=== PATIENT | female | born 1995 | race Caucasian/White ===

== ENCOUNTER 2022-02-18 20:08 | Observation (INO) ==
[2022-02-18] MEDS ORDERED: IOPAMIDOL 100 ML BOTTLE IV ONE (20:09)
[2022-02-18] MEDS ORDERED: 0.9 % SODIUM CHLORIDE 1,000 ML IV ONE (20:17)
[2022-02-18] MEDS ORDERED: cefTRIAXone 1 GM VIAL IV ONE (20:49)
--- NOTE | 2022-02-18 20:51 | Emergency Department Note ---
HPI General Chief complaint: Abdominal Pain Stated complaint: abd pain Time Seen by Provider: 02/18/22 20:16 Mode of arrival: ambulatory Limitations: no limitations History of Present Illness HPI Narrative: Narrative: Patient is a 26-year-old female who presents to the emergency department due to concern for worsening UTI. Patient states that 2 weeks ago she had burning pain with urination and increased frequency of urination, and at that time thought she had a UTI. She states that she started using cranberry juice, and felt like she had improvement in her symptoms. She states that approximately a week ago she started to have worsening burning pain with urination. She states that she spoke to her mom, and a day and a half ago began using Bactrim. She states that it is Bactrim that is used for horses. She did not see a physician or have a UTI officially diagnosed. She states that she started to have worsening abdominal pain today. This pain is in the right and left lower quadrants, as well as the left upper quadrant. She denies further radiation of the pain. She denies palliative or provocative factors. She states that she has had a subjective fever and chills. She has been taking Tylenol for this reason as we ll as for pain relief. She states that she has been taking 2 of the 500 mg tablets every 4-5 hours, but has only been that 3 times today. She endorses nausea, but has not vomited. She does state that she has had vaginal discharge that she thought was a yeast infection that she was treating, but does not have the symptoms anymore at this time. She denies any other concerns currently. Related Data Allergies Allergy/AdvReac Type Severity Reaction Status Date / Time No Known Drug Allergies Allergy Verified 02/18/22 20:13 Review of Systems ROS ROS Narrative: Narrative: Constitutional: Reports fever; Denies weakness Eyes: Denies eye pain or vision change ENT ED: Denies throat pain or rhinorrhea Cardiovascular: Denies chest pain or edema Respiratory: Denies shortness of breath or cough Gastrointestinal: Reports abdominal pain, nausea and vomiting; Denies diarrhea, constipation, hematochezia or melena Genitourinary: Reports dysuria and frequency; Denies hematuria Musculoskeletal: Denies back pain or myalgia Integumentary: Denies rash or lesions Neurological: Denies headache, weakness, numbness, confusion, abnormal gait or dizziness Endocrine: Denies fatigue or polyuria [facility] Narrative Patient History Narrative: Narrative: Medical/Surgical/Family History All Active Problems (Updated 02/19/22 @ 01:40 by Gene Hardin MD) Sepsis due to urinary tract infection (Acute) Ankle pain, right (Acute) Medical History (Updated 02/19/22 @ 01:40 by Gene Hadrin MD) Ankle pain, right Social History Alcohol Intake Frequency: does not drink Substance Use: does not use Exam Narrative Narrative: Narrative: General Limitations: no limitations General appearance: Present alert and in no apparent distress; Absent anxious or appears intoxicated Head Head: Present atraumatic and normocephalic Eye Eye: Present PERRL and EOMI; Absent scleral icterus or nystagmus ENT ENT: Present mucous membranes moist; Absent nasal congestion Neck Neck: Present full ROM; Absent tenderness Chest Chest: Present normal inspection and symmetric chest wall rise Respiratory Respiratory: Present normal lung sounds bilaterally; Absent respiratory distress or accessory muscle use Cardiovascular Cardiovascular: Present regular rate, normal rhythm and normal heart sounds Adbominal Abdominal: Present soft, tenderness (Right lower quadrant, left lower quadrant, left upper quadrant) and normal bowel sounds; Absent distention, guarding, rebound, rigidity, Jacobs's sign or Rovsing's sign Extremities Extremities: Present normal inspection and full ROM; Absent tenderness Back Back: Present normal inspection, full ROM and CVA tenderness (L) (Mild); Absent tenderness or CVA tenderness (R) Neurological Neurological: Present alert and oriented X3 Psychiatric Psychiatric: Present normal affect and normal mood Skin Skin: Present warm (WNL), dry and normal color Course Vital Signs Vital signs: Vital Signs Temperature 98.1 F 02/18/22 20:09 Pulse Rate 118 H 02/18/22 20:09 Respiratory Rate 24 H 02/18/22 20:09 Blood Pressure 129/72 02/18/22 20:09 Pulse Oximetry (%) 96 02/18/22 20:09 Oxygen Delivery Method 02/18/22 20:09 Temperature 100.2 F H 02/18/22 20:46 Pulse Rate 71 02/19/22 01:31 Respiratory Rate 12 02/19/22 01:31 Blood Pressure 108/64 02/19/22 01:31 Pulse Oximetry (%) 99 02/19/22 01:31 Oxygen Delivery Method 02/18/22 20:09 MDM MDM Narrative Medical decision making narrative: Narrative: Patient is a 26-year-old female who presents to the emergency department due to abdominal pain. It is possible the patient's symptoms are due to UTI given her burning pain with urination and frequency. Differential also includes gastroenteritis, colitis, pancreatitis, and pelvic inflammatory disease. I spoke to patient about possibility of pelvic infection, and initially patient stated that she did not want a pelvic exam. We spoke further about reasoning for a pelvic exam, and she stated that she wanted to talk about it. I spoke to patient again, and told her that we could wait for results of the CT scan prior to making a decision about the pelvic exam. Patient's labs are si gnificant for a white blood cell count elevation of 18.7. Her urine does show white blood cells, but does not show leukocyte esterase or nitrite, and also does not show bacteria. It is possible that this is because of the Bactrim the patient has been taking. CT scan demonstrates multiple hypodensities within the left kidney and striated pattern with associated perinephric inflammatory changes, as well as mild hyperemia along the left ureter. I spoke to the patient about these findings. With these findings and other symptoms consistent with a UTI I am concerned about urosepsis. I have spoken to Dr. Parry about these findings. He has agreed to accept patient for admission. Lab Data Result diagrams: 02/18/22 20:55 Labs: Lab Results 02/18/22 02/18/22 02/18/22 Range/Units 20:55 20:55 20:55 WBC 18.7 H (4.5-11.0) K/mcL RBC 4.58 (3.59-5.38) M/mcL Hgb 13.6 (11.2-15.7) g/dL Hct 39.9 (34.1-44.9) % POC Hct (36-48) MCV 87.1 (80.0-100.0) fL MCH 29.7 (26.0-34.0) pg MCHC 34.1 (31.0-36.0) g/dL RDW 12.0 (11.5-14.5) % Plt Count 196 (140-440) K/mcL MPV 11.6 H (7.4-10.4) fL Immature Gran % (Auto) 0.5 (0.0-0.5) % Neut % (Auto) 84.2 H (38.0-78.0) % Lymph % (Auto) 7.3 L (15.5-49.0) % [place] % (Auto) 7.8 (1.0-12.0) % Eos % (Auto) 0 (0.0-7.0) % Baso % (Auto) 0.2 (0.0-2.0) % Lymph # (Auto) 1.36 L (1.50-4.80) K/mcL [place] # (Auto) 1.47 H (0.10-0.90) K/mcL Eos # (Auto) 0 (0.00-0.70) K/mcL Baso # (Auto) 0.04 (0.00-0.30) K/mcL Immature Gran # 0.09 H (0.00-0.05) K/mcl Absolute Neutrophils 15.77 H (1.80-8.00) K/mcL VBG Lactic Acid (0.5-2.0) mmol/L POC Sodium (133-145) POC Potassium (3.3-5.1) POC Chloride (96-108) POC Total CO2 (22-30) POC BUN (6-20) POC Creatinine (0.6-1.2) POC Glucose (70-105) POC WB Ioniz Calcium (1.16-1.32) Total Bilirubin (0.1-1.0) mg/dL Direct Bilirubin (0-0.3) mg/dL AST (<32) U/L ALT (<40) U/L Alkaline Phosphatase (39-117) U/L Total Protein (5.9-8.4) gm/dL Albumin (3.2-5.2) gm/dL Globulin (2.2-3.7) gm/dL Lipase (7-60) U/L Procalcitonin 0.19 H (<0.10) ng/mL HCG Beta Subunit mIU/mL Urine Color Yellow Urine Appearance Clear (Clear) Urine pH 6.0 (5.0-9.0) Ur Specific [place] 1.025 (1.000-1.035) Urine Protein Trace A (Negative) mg/dL Urine Glucose (UA) Negative (Negative) mg/dL Urine Ketones 40 mg/dl A (Negative) mg/dL Urine Occult Blood Small A (Negative) tahir/mcL Urine Nitrate Negative (Negative) Urine Bilirubin Negative (Negative) mg/dL Urine Urobilinogen Normal mg/dL Ur Leukocyte Esterase Negative (Negative) /uL Urine RBC 7 H (0-3) /hpf Urine WBC 18 H (0-4) /hpf Ur Squamous Epith Cells 1 (0-4) /hpf Urine Bacteria None (0) /hpf Urine Mucus Mod A (None) /hpf Ur Culture Indicated? yes Acetaminophen ug/mL 02/18/22 02/18/22 02/18/22 Range/Units 20:55 20:55 20:59 WBC (4.5-11.0) K/mcL RBC (3.59-5.38) M/mcL Hgb (11.2-15.7) g/dL Hct (34.1-44.9) % POC Hct 42.0 (36-48) MCV (80.0-100.0) fL MCH (26.0-34.0) pg MCHC (31.0-36.0) g/dL RDW (11.5-14.5) % Plt Count (140-440) K/mcL MPV (7.4-10.4) fL Immature Gran % (Auto) (0.0-0.5) % Neut % (Auto) (38.0-78.0) % Lymph % (Auto) (15.5-49.0) % [place] % (Auto) (1.0-12.0) % Eos % (Auto) (0.0-7.0) % Baso % (Auto) (0.0-2.0) % Lymph # (Auto) (1.50-4.80) K/mcL [place] # (Auto) (0.10-0.90) K/mcL Eos # (Auto) (0.00-0.70) K/mcL Baso # (Auto) (0.00-0.30) K/mcL Immature Gran # (0.00-0.05) K/mcl Absolute Neutrophils (1.80-8.00) K/mcL VBG Lactic Acid (0.5-2.0) mmol/L POC Sodium 136 (133-145) POC Potassium 3.6 (3.3-5.1) POC Chloride 102 (96-108) POC Total CO2 23.0 (22-30) POC BUN 5 L (6-20) POC Creatinine 0.6 (0.6-1.2) POC Glucose 105 (70-105) POC WB Ioniz Calcium 1.12 L (1.16-1.32) Total Bilirubin 0.8 (0.1-1.0) mg/dL Direct Bilirubin < 0.2 (0-0.3) mg/dL AST 20 (<32) U/L ALT 13 (<40) U/L Alkaline Phosphatase 61 (39-117) U/L Total Protein 7.3 (5.9-8.4) gm/dL Albumin 4.0 (3.2-5.2) gm/dL Globulin 3.3 (2.2-3.7) gm/dL Lipase (7-60) U/L Procalcitonin (<0.10) ng/mL HCG Beta Subunit mIU/mL Urine Color Urine Appearance (Clear) Urine pH (5.0-9.0) Ur Specific [place] (1.000-1.035) Urine Protein (Negative) mg/dL Urine Glucose (UA) (Negative) mg/dL Urine Ketones (Negative) mg/dL Urine Occult Blood (Negative) tahir/mcL Urine Nitrate (Negative) Urine Bilirubin (Negative) mg/dL Urine Urobilinogen mg/dL Ur Leukocyte Esterase (Negative) /uL Urine RBC (0-3) /hpf Urine WBC (0-4) /hpf Ur Squamous Epith Cells (0-4) /hpf Urine Bacteria (0) /hpf Urine Mucus (None) /hpf Ur Culture Indicated? Acetaminophen 16.3 ug/mL 02/18/22 02/19/22 Range/Units 21:06 20:55 WBC (4.5-11.0) K/mcL RBC (3.59-5.38) M/mcL Hgb (11.2-15.7) g/dL Hct (34.1-44.9) % POC Hct (36-48) MCV (80.0-100.0) fL MCH (26.0-34.0) pg MCHC (31.0-36.0) g/dL RDW (11.5-14.5) % Plt Count (140-440) K/mcL MPV (7.4-10.4) fL Immature Gran % (Auto) (0.0-0.5) % Neut % (Auto) (38.0-78.0) % Lymph % (Auto) (15.5-49.0) % [place] % (Auto) (1.0-12.0) % Eos % (Auto) (0.0-7.0) % Baso % (Auto) (0.0-2.0) % Lymph # (Auto) (1.50-4.80) K/mcL [place] # (Auto) (0.10-0.90) K/mcL Eos # (Auto) (0.00-0.70) K/mcL Baso # (Auto) (0.00-0.30) K/mcL Immature Gran # (0.00-0.05) K/mcl Absolute Neutrophils (1.80-8.00) K/mcL VBG Lactic Acid 0.9 (0.5-2.0) mmol/L POC Sodium (133-145) POC Potassium (3.3-5.1) POC Chloride (96-108) POC Total CO2 (22-30) POC BUN (6-20) POC Creatinine (0.6-1.2) POC Glucose (70-105) POC WB Ioniz Calcium (1.16-1.32) Total Bilirubin (0.1-1.0) mg/dL Direct Bilirubin (0-0.3) mg/dL AST (<32) U/L ALT (<40) U/L Alkaline Phosphatase (39-117) U/L Total Protein (5.9-8.4) gm/dL Albumin (3.2-5.2) gm/dL Globulin (2.2-3.7) gm/dL Lipase 13 (7-60) U/L Procalcitonin (<0.10) ng/mL HCG Beta Subunit < 0.1 mIU/mL Urine Color Urine Appearance (Clear) Urine pH (5.0-9.0) Ur Specific [place] (1.000-1.035) Urine Protein (Negative) mg/dL Urine Glucose (UA) (Negative) mg/dL Urine Ketones (Negative) mg/dL Urine Occult Blood (Negative) tahir/mcL Urine Nitrate (Negative) Urine Bilirubin (Negative) mg/dL Urine Urobilinogen mg/dL Ur Leukocyte Esterase (Negative) /uL Urine RBC (0-3) /hpf Urine WBC (0-4) /hpf Ur Squamous Epith Cells (0-4) /hpf Urine Bacteria (0) /hpf Urine Mucus (None) /hpf Ur Culture Indicated? Acetaminophen ug/mL ED POC Tests ED POC Tests: RUPALI - Influenza A Negative RUPALI - Influenza B Negative RUPALI - SARS Antigen Negative HCG POC Results Negative Discharge Plan Patient/Caregiver Discharge Instructions Pt seen by [employer]PL[employer]ISHER/PA only: No Clinical Impression: Sepsis due to urinary tract infection Patient Disposition: Xfer As Inpt ([facility]) Follow up with: Francia Whitlock ARNP [Primary Care Provider] -
[2022-02-18] MEDS ORDERED: ONDANSETRON 4 MG/2 ML VIAL IV ONE (21:08)
[2022-02-18 21:11] LABS: POC Calcium, Ionized 1.12 (1.16-1.32); POC Creatinine 0.6 (0.6-1.2); POC Potassium 3.6 (3.3-5.1)
[2022-02-18] MEDS ORDERED: IBUPROFEN 600 MG TABLET PO ONE (21:40)
[2022-02-18 22:27] LABS: Basophils # (Auto) 0.04 K/mcL (0.00-0.30); Basophils % (Auto) 0.2 % (0.0-2.0); Eosinophils # (Auto) 0 K/mcL (0.00-0.70); Eosinophils % (Auto) 0 % (0.0-7.0); Hematocrit 39.9 % (34.1-44.9); Hemoglobin 13.6 g/dL (11.2-15.7); Lymphocytes # (Auto) 1.36 K/mcL (1.50-4.80); Lymphocytes % (Auto) 7.3 % (15.5-49.0); Mean Cell Volume 87.1 fL (80.0-100.0); Mean Corpuscular HGB Conc 34.1 g/dL (31.0-36.0); Mean Platelet Volume 11.6 fL (7.4-10.4); Monocytes # (Auto) 1.47 K/mcL (0.10-0.90); Monocytes % (Auto) 7.8 % (1.0-12.0); Neutrophils % (Auto) 84.2 % (38.0-78.0); Platelet Count 196 K/mcL (140-440); RBC 4.58 M/mcL (3.59-5.38); WBC 18.7 K/mcL (4.5-11.0)
[2022-02-18 22:30] LABS: ALT/SGPT 13 U/L (<40); AST/SGOT 20 U/L (<32); Alkaline Phosphatase 61 U/L (39-117); Bilirubin,Direct < 0.2 mg/dL (0-0.3); Bilirubin,Total 0.8 mg/dL (0.1-1.0); Globulin 3.3 gm/dL (2.2-3.7)
[2022-02-18 22:36] LABS: Appearance,Urine Clear (Clear); Bilirubin,Urine Negative (Negative); Color,Urine Yellow; Culture Indicated,Urine yes; Glucose,Urine (UA) Negative (Negative); Ketones,Urine 40 mg/dL mg/dL (Negative); Leukocyte Esterase,Urine Negative /uL (Negative); Mucus,Urine MOD /hpf; Nitrate,Urine Negative (Negative); Protein,Urine Trace mg/dL (Negative); Specific Gravity,Urine 1.025 (1.000-1.035); Urine Blood Small ery/mcL (Negative); Urine RBC 7 /hpf (0-3); Urine Squamous Epithelial Cell 1 /hpf (0-4); Urine WBC 18 /hpf (0-4); Urobilinogen,Urine Normal
[2022-02-19 01:17] LABS: HCG Titer, Quantitative < 0.1 mIU/mL
[2022-02-19] MEDS ORDERED: LACTATED RINGERS 1,000 ML IV SCH ×2 (01:45→09:51)
[2022-02-19] MEDS ORDERED: ACETAMINOPHEN 325 MG TABLET PO ONE (02:47)
[2022-02-19] MEDS: ACETAMINOPHEN 325 MG TABLET PO PRN ×3 (02:52→20:19)
--- NOTE | 2022-02-19 05:34 | Cat Scan Report ---
CLINICAL INFORMATION: Abdominal pain COMPARISON: None. TECHNIQUE: Following enteric contrast, 80 cc of Isovue-370 were injected intravenously, and 60 seconds later, 0.625 mm helical slices were obtained from the mid heart through the subtrochanteric regions. Following reconstruction, 2.5 mm sagittal, coronal and axial reformatted images were processed and reviewed at bone, lung and soft tissue windows. Five minutes later, 0.625 mm helical slices were obtained from the mid heart through the kidneys and viewed at soft tissue windows.The exam was performed using radiation dose optimization techniques including, but not limited to, automated exposure control, adjustment of the mA and/or kV according to patient size and use of iterative reconstruction technique. FINDINGS: The lung bases are clear. No effusions. The visualized heart is grossly normal. Abdominal images show the gallbladder and bile ducts, liver, adrenal glands, spleen, pancreas and aorta, including aortic branches, are normal in size, configuration and attenuation without focal lesion. There is no free air or adenopathy. Small amount of free fluid in the deep true pelvis is likely physiologic. Left kidney is slightly enlarged measuring 12 cm in length. There is moderate patchy inhomogeneous low attenuation within the renal parenchyma and mild thickening of the transitional epithelium in the upper collecting system with perinephric fluid all compatible with pyelonephritis. No pippa abscess. Right kidney is normal in size and configuration (10.6 cm in length). Pelvic images show normal urinary bladder. Uterus and both ovaries are normal in size, configuration and attenuation. IUD is properly positioned within the endometrial cavity. The stomach, small bowel, appendix region and large bowel are grossly normal. Bone windows show no osseous abnormality IMPRESSION: Simple pyelonephritis-left kidney Interpreted and Authenticated by: Jovanni Hart 02/19/22
[2022-02-19 06:36] LABS: Basophils # (Auto) 0.04 K/mcL (0.00-0.30); Basophils % (Auto) 0.3 % (0.0-2.0); Eosinophils # (Auto) 0.06 K/mcL (0.00-0.70); Eosinophils % (Auto) 0.5 % (0.0-7.0); Hematocrit 35.5 % (34.1-44.9); Hemoglobin 12.2 g/dL (11.2-15.7); Lymphocytes # (Auto) 2.22 K/mcL (1.50-4.80); Lymphocytes % (Auto) 17.1 % (15.5-49.0); Mean Cell Volume 88.5 fL (80.0-100.0); Mean Corpuscular HGB Conc 34.4 g/dL (31.0-36.0); Mean Platelet Volume 11.1 fL (7.4-10.4); Monocytes # (Auto) 1.31 K/mcL (0.10-0.90); Monocytes % (Auto) 10.1 % (1.0-12.0); Neutrophils % (Auto) 71.5 % (38.0-78.0); Platelet Count 172 K/mcL (140-440); RBC 4.01 M/mcL (3.59-5.38)
[2022-02-19 06:55] LABS: ALT/SGPT 9 U/L (<40); AST/SGOT 11 U/L (<32); Albumin 3.3 gm/dL (3.2-5.2); Albumin/Globulin Ratio 1.2 (1.0-2.3); Alkaline Phosphatase 49 U/L (39-117); Bilirubin,Direct < 0.2 mg/dL (0-0.3); Bilirubin,Total 0.5 mg/dL (0.1-1.0); Blood Urea Nitrogen 6 mg/dL (6-20); Calcium 8.4 mg/dL (8.6-10.4); Carbon Dioxide 23 mmol/L (22-30); Chloride 104 mmol/L (96-108); Globulin 2.7 gm/dL (2.2-3.7); Glomerular Filtration Rate 135; Glucose 102 mg/dL (70-105); Lactate Dehydrogenase 124 U/L (135-225); Triglycerides 83 mg/dL (<150); Uric Acid 2.6 mg/dL (2.5-8.0)
--- NOTE | 2022-02-19 07:52 | Internal Med History&Physical ---
HPI History of Present Illness Patient information: Note initiated : 02/19/22 at 7:47 am Service Date, if different from initiated Date: [] Patient: Felicia Dwyer 26 y/o F admitted on 02/19/22 for abd pain. Chief Complaint: [] History of present illness: Ms. Dwyer is a 26 year old F Who thought she had UTI symptoms several weeks ago described as burning and frequency and initially tried cranberry juice and then tried some home antibiotics that they had further horses which monitor status basically Bactrim. She said the symptoms mostly improved but now patient presented to ED with bilateral abdominal pain lower quadrant. Pain was severe at times mostly dull ache but sometimes crampy and sharp. She had nausea vomiting for 24 hours could not keep any pain medications down. Tina feverish and chilled and had a headache as well. Her temperature in the ER was 100.2. Blood pressure stable. She was tachycardic up to 118 when she first arrived. She had a leukocytosis of almost 19,000 when she arrived. Lactic acid within normal limits. Beta-hCG negative. CT ab pelvis showed pyelonephritis left kidney. Review of Systems: Positives as above. Denies headache/fever/chills/nausea/vomiting/chest pain/cough/dyspnea/diarrhea. Remaining 10 point review of system reviewed negative PFSH PFSH All Active Problems (Updated 02/19/22 @ 01:40 by Gene Hardin MD) Sepsis due to urinary tract infection (Acute) Ankle pain, right (Acute) Medical History (Updated 02/19/22 @ 01:40 by Gene Hardin MD) Ankle pain, right Social History (Updated 12/06/16 @ 14:49 by Judith Urias RN) smoking status: Never smoker alcohol intake frequency: does not drink substance use type: does not use MEDS/ALLERGIES Home Medications and Allergies Home Medications Medication Instructions Recorded Confirmed Type buspirone 15 mg tablet 1 tab PO BID 02/19/22 02/19/22 History duloxetine 20 mg capsule,delayed 1 cap PO DAILY 02/19/22 02/19/22 History release levofloxacin 750 mg tablet 750 mg PO Q24H #5 tabs 02/19/22 Rx Allergies Allergy/AdvReac Type Severity Reaction Status Date / Time No Known Drug Allergies Allergy Verified 02/18/22 20:13 EXAM Constitutional Vitals: Temp Pulse Resp BP Pulse Ox O2 Del Method 97.4 F 69 20 110/77 100 02/19/22 04:00 02/19/22 04:00 02/19/22 04:00 02/19/22 04:00 02/19/22 04:00 02/19/22 04:00 Exam: General: Alert, Awake, No acute Distress Eyes/N/T: EOMI, PERRL, Head/Neck: neck supple, normocephalic atraumatic CV: RRR, No murmurs, normal s1/s2 Pulm: Clear b/l, no wheezing/rhonchi/rales Abd: soft, nontender, +BS x4, CVA tenderness on Left Ext: no clubbing/cyanosis/edema Neuro: Alert, no focal deficits, moves all extremities, CN 2-12 grossly intact, symmetrical strength b/l upper/lower, sensations intact b/l upper/lower Skin: warm/dry DATA Data Completed and Pending Labs: Labs from last 24 hours 02/19/22 02/19/22 02/19/22 20:55 05:23 05:23 WBC 13.0 H RBC 4.01 Hgb 12.2 Hct 35.5 POC Hct MCV 88.5 MCH 30.4 MCHC 34.4 RDW 12.0 Plt Count 172 MPV 11.1 H Immature Gran % (Auto) 0.5 Neut % (Auto) 71.5 Lymph % (Auto) 17.1 [place] % (Auto) 10.1 Eos % (Auto) 0.5 Baso % (Auto) 0.3 Lymph # (Auto) 2.22 [place] # (Auto) 1.31 H Eos # (Auto) 0.06 Baso # (Auto) 0.04 Immature Gran # 0.06 H Absolute Neutrophils 9.31 H VBG Lactic Acid POC Sodium Sodium 135 POC Potassium Potassium 3.6 POC Chloride Chloride 104 Carbon Dioxide 23 POC Total CO2 Anion Gap 8.0 POC BUN BUN 6 Creatinine 0.5 L POC Creatinine GFR Calculation 135 Glucose 102 POC Glucose Uric Acid 2.6 Calcium 8.4 L POC WB Ioniz Calcium Phosphorus 3.0 Magnesium 2.1 Total Bilirubin 0.5 Direct Bilirubin < 0.2 GGT 11 AST 11 ALT 9 Alkaline Phosphatase 49 Lactate Dehydrogenase 124 L Total Protein 6.0 Albumin 3.3 Globulin 2.7 Albumin/Globulin Ratio 1.2 Triglycerides 83 Lipase 13 Procalcitonin HCG Beta Subunit < 0.1 Urine Color Urine Appearance Urine pH Ur Specific [place] Urine Protein Urine Glucose (UA) Urine Ketones Urine Occult Blood Urine Nitrate Urine Bilirubin Urine Urobilinogen Ur Leukocyte Esterase Urine RBC Urine WBC Ur Squamous Epith Cells Urine Bacteria Urine Mucus Ur Culture Indicated? Acetaminophen 02/18/22 02/18/22 02/18/22 21:06 20:59 20:55 WBC RBC Hgb Hct POC Hct 42.0 MCV MCH MCHC RDW Plt Count MPV Immature Gran % (Auto) Neut % (Auto) Lymph % (Auto) [place] % (Auto) Eos % (Auto) Baso % (Auto) Lymph # (Auto) [place] # (Auto) Eos # (Auto) Baso # (Auto) Immature Gran # Absolute Neutrophils VBG Lactic Acid 0.9 POC Sodium 136 Sodium POC Potassium 3.6 Potassium POC Chloride 102 Chloride Carbon Dioxide POC Total CO2 23.0 Anion Gap POC BUN 5 L BUN Creatinine POC Creatinine 0.6 GFR Calculation Glucose POC Glucose 105 Uric Acid Calcium POC WB Ioniz Calcium 1.12 L Phosphorus Magnesium Total Bilirubin Direct Bilirubin GGT AST ALT Alkaline Phosphatase Lactate Dehydrogenase Total Protein Albumin Globulin Albumin/Globulin Ratio Triglycerides Lipase Procalcitonin HCG Beta Subunit Urine Color Urine Appearance Urine pH Ur Specific [place] Urine Protein Urine Glucose (UA) Urine Ketones Urine Occult Blood Urine Nitrate Urine Bilirubin Urine Urobilinogen Ur Leukocyte Esterase Urine RBC Urine WBC Ur Squamous Epith Cells Urine Bacteria Urine Mucus Ur Culture Indicated? Acetaminophen 16.3 02/18/22 02/18/22 02/18/22 20:55 20:55 20:55 WBC RBC Hgb Hct POC Hct MCV MCH MCHC RDW Plt Count MPV Immature Gran % (Auto) Neut % (Auto) Lymph % (Auto) [place] % (Auto) Eos % (Auto) Baso % (Auto) Lymph # (Auto) [place] # (Auto) Eos # (Auto) Baso # (Auto) Immature Gran # Absolute Neutrophils VBG Lactic Acid POC Sodium Sodium POC Potassium Potassium POC Chloride Chloride Carbon Dioxide POC Total CO2 Anion Gap POC BUN BUN Creatinine POC Creatinine GFR Calculation Glucose POC Glucose Uric Acid Calcium POC WB Ioniz Calcium Phosphorus Magnesium Total Bilirubin 0.8 Direct Bilirubin < 0.2 GGT AST 20 ALT 13 Alkaline Phosphatase 61 Lactate Dehydrogenase Total Protein 7.3 Albumin 4.0 Globulin 3.3 Albumin/Globulin Ratio Triglycerides Lipase Procalcitonin 0.19 H HCG Beta Subunit Urine Color Yellow Urine Appearance Clear Urine pH 6.0 Ur Specific [place] 1.025 Urine Protein Trace A Urine Glucose (UA) Negative Urine Ketones 40 mg/dl A Urine Occult Blood Small A Urine Nitrate Negative Urine Bilirubin Negative Urine Urobilinogen Normal Ur Leukocyte Esterase Negative Urine RBC 7 H Urine WBC 18 H Ur Squamous Epith Cells 1 Urine Bacteria None Urine Mucus Mod A Ur Culture Indicated? yes Acetaminophen 02/18/22 20:55 WBC 18.7 H RBC 4.58 Hgb 13.6 Hct 39.9 POC Hct MCV 87.1 MCH 29.7 MCHC 34.1 RDW 12.0 Plt Count 196 MPV 11.6 H Immature Gran % (Auto) 0.5 Neut % (Auto) 84.2 H Lymph % (Auto) 7.3 L [place] % (Auto) 7.8 Eos % (Auto) 0 Baso % (Auto) 0.2 Lymph # (Auto) 1.36 L [place] # (Auto) 1.47 H Eos # (Auto) 0 Baso # (Auto) 0.04 Immature Gran # 0.09 H Absolute Neutrophils 15.77 H VBG Lactic Acid POC Sodium Sodium POC Potassium Potassium POC Chloride Chloride Carbon Dioxide POC Total CO2 Anion Gap POC BUN BUN Creatinine POC Creatinine GFR Calculation Glucose POC Glucose Uric Acid Calcium POC WB Ioniz Calcium Phosphorus Magnesium Total Bilirubin Direct Bilirubin GGT AST ALT Alkaline Phosphatase Lactate Dehydrogenase Total Protein Albumin Globulin Albumin/Globulin Ratio Triglycerides Lipase Procalcitonin HCG Beta Subunit Urine Color Urine Appearance Urine pH Ur Specific [place] Urine Protein Urine Glucose (UA) Urine Ketones Urine Occult Blood Urine Nitrate Urine Bilirubin Urine Urobilinogen Ur Leukocyte Esterase Urine RBC Urine WBC Ur Squamous Epith Cells Urine Bacteria Urine Mucus Ur Culture Indicated? Acetaminophen A/P Narrative A/P Narrative: A: *Left pyelonephritis: *Sepsis: 2/2 above, improving *Depression/anxiety: P: -Rocephin pending UC -IVF -pain control -ppx: SCD/Ambulation Time Spent With Patient Time: Total time spent is greater than 50% in coordination of care (as documented) at patient's floor/unit and/or counseling patient:
[2022-02-19] MEDS ORDERED: HYDROcodone/APAP 5/325MG TABLET PO PRN (08:54)
[2022-02-19] MEDS ORDERED: POTASSIUM CHLORIDE 20 MEQ TABLET PO PRN ×2 (08:54)
[2022-02-19] MEDS ORDERED: ONDANSETRON 4 MG/2 ML VIAL IV PRN (08:54)
[2022-02-19] MEDS ORDERED: POLYETHYLENE GLYCOL 3350 17 GM PACKET PO PRN (08:54)
[2022-02-19] MEDS ORDERED: POTASSIUM CHLORIDE 40 MEQ in DEXTROSE 5% IN WATER 500 ML IV PRN (08:54)
[2022-02-19] MEDS ORDERED: MAGNESIUM SULFATE 2 GM/50 ML BAG IV PRN (08:54)
--- NOTE | 2022-02-19 08:58 | Discharge Summary ---
Discharge Provider Provider IMPORTANT FOLLOW-UP INFORMATION FOR PCP: Patient information: Note initiated : 02/19/22 at 8:57 am Service Date, if different from initiated Date: [] Patient: Felicia Dwyer 26 y/o F admitted on 02/19/22 for abd pain. Chief Complaint: [] Date of admission: 02/19/22 02:26 Discharge date: 02/20/22 Primary care physician: JOHNNIE Caruso Consults: 02/18/22 Consult to Physician [CONS] Stat Comment: Consulting Provider: Sanya Parry Reason For Exam: Physician to Consult COURSE Hospital Course Hospital course: History of present illness: Ms. Dwyer is a 26 year old F Who thought she had UTI symptoms several weeks ago described as burning and frequency and initially tried cranberry juice and then tried some home antibiotics that they had further horses which monitor status basically Bactrim. She said the symptoms mostly improved but now patient presented to ED with bilateral abdominal pain lower quadrant. Pain was severe at times mostly dull ache but sometimes crampy and sharp. She had nausea vomiting for 24 hours could not keep any pain medications down. [place] feverish and chilled and had a headache as well. Her temperature in the ER was 100.2. Blood pressure stable. She was tachycardic up to 118 when she first arrived. She had a leukocytosis of almost 19,000 when she arrived. Lactic acid within normal limits. Beta-hCG negative. CT ab pelvis showed pyelonephritis left kidney. 02/20 Patient feeling better. Leukocytosis resolved. Afebrile. Stable for discharge. A: *Left pyelonephritis: *Sepsis: 2/2 above, improving *Depression/anxiety: P: -Abx Discharge diagnosis: Pyelonephritis sepsis Secondary discharge diagnosis: Depression anxiety Time Spent with Patient Time attestation: Total time spent providing and/or coordinating discharge services: Time spent: Greater than 30 minutes EXAM Constitutional Vitals: Temp Pulse Resp BP Pulse Ox O2 Del Method 98.5 F 69 16 119/71 100 02/19/22 08:00 02/19/22 04:00 02/19/22 08:00 02/19/22 08:00 02/19/22 08:00 02/19/22 04:00 Discharge Data Data Completed and Pending Labs on day of discharge: Labs from last 24 hours 02/19/22 02/19/2222 20:55 05:23 05:23 WBC 13.0 H RBC 4.01 Hgb 12.2 Hct 35.5 POC Hct MCV 88.5 MCH 30.4 MCHC 34.4 RDW 12.0 Plt Count 172 MPV 11.1 H Immature Gran % (Auto) 0.5 Neut % (Auto) 71.5 Lymph % (Auto) 17.1 [place] % (Auto) 10.1 Eos % (Auto) 0.5 Baso % (Auto) 0.3 Lymph # (Auto) 2.22 [place] # (Auto) 1.31 H Eos # (Auto) 0.06 Baso # (Auto) 0.04 Immature Gran # 0.06 H Absolute Neutrophils 9.31 H VBG Lactic Acid POC Sodium Sodium 135 POC Potassium Potassium 3.6 POC Chloride Chloride 104 Carbon Dioxide 23 POC Total CO2 Anion Gap 8.0 POC BUN BUN 6 Creatinine 0.5 L POC Creatinine GFR Calculation 135 Glucose 102 POC Glucose Uric Acid 2.6 Calcium 8.4 L POC WB Ioniz Calcium Phosphorus 3.0 Magnesium 2.1 Total Bilirubin 0.5 Direct Bilirubin < 0.2 GGT 11 AST 11 ALT 9 Alkaline Phosphatase 49 Lactate Dehydrogenase 124 L Total Protein 6.0 Albumin 3.3 Globulin 2.7 Albumin/Globulin Ratio 1.2 Triglycerides 83 Lipase 13 Procalcitonin HCG Beta Subunit < 0.1 Urine Color Urine Appearance Urine pH Ur Specific [place] Urine Protein Urine Glucose (UA) Urine Ketones Urine Occult Blood Urine Nitrate Urine Bilirubin Urine Urobilinogen Ur Leukocyte Esterase Urine RBC Urine WBC Ur Squamous Epith Cells Urine Bacteria Urine Mucus Ur Culture Indicated? Acetaminophen 02/18/22 02/18/22 02/18/22 21:06 20:59 20:55 WBC RBC Hgb Hct POC Hct 42.0 MCV MCH MCHC RDW Plt Count MPV Immature Gran % (Auto) Neut % (Auto) Lymph % (Auto) [place] % (Auto) Eos % (Auto) Baso % (Auto) Lymph # (Auto) [place] # (Auto) Eos # (Auto) Baso # (Auto) Immature Gran # Absolute Neutrophils VBG Lactic Acid 0.9 POC Sodium 136 Sodium POC Potassium 3.6 Potassium POC Chloride 102 Chloride Carbon Dioxide POC Total CO2 23.0 Anion Gap POC BUN 5 L BUN Creatinine POC Creatinine 0.6 GFR Calculation Glucose POC Glucose 105 Uric Acid Calcium POC WB Ioniz Calcium 1.12 L Phosphorus Magnesium Total Bilirubin Direct Bilirubin GGT AST ALT Alkaline Phosphatase Lactate Dehydrogenase Total Protein Albumin Globulin Albumin/Globulin Ratio Triglycerides Lipase Procalcitonin HCG Beta Subunit Urine Color Urine Appearance Urine pH Ur Specific [place] Urine Protein Urine Glucose (UA) Urine Ketones Urine Occult Blood Urine Nitrate Urine Bilirubin Urine Urobilinogen Ur Leukocyte Esterase Urine RBC Urine WBC Ur Squamous Epith Cells Urine Bacteria Urine Mucus Ur Culture Indicated? Acetaminophen 16.3 02/18/22 02/18/22 02/18/22 20:55 20:55 20:55 WBC RBC Hgb Hct POC Hct MCV MCH MCHC RDW Plt Count MPV Immature Gran % (Auto) Neut % (Auto) Lymph % (Auto) [place] % (Auto) Eos % (Auto) Baso % (Auto) Lymph # (Auto) [place] # (Auto) Eos # (Auto) Baso # (Auto) Immature Gran # Absolute Neutrophils VBG Lactic Acid POC Sodium Sodium POC Potassium Potassium POC Chloride Chloride Carbon Dioxide POC Total CO2 Anion Gap POC BUN BUN Creatinine POC Creatinine GFR Calculation Glucose POC Glucose Uric Acid Calcium POC WB Ioniz Calcium Phosphorus Magnesium Total Bilirubin 0.8 Direct Bilirubin < 0.2 GGT AST 20 ALT 13 Alkaline Phosphatase 61 Lactate Dehydrogenase Total Protein 7.3 Albumin 4.0 Globulin 3.3 Albumin/Globulin Ratio Triglycerides Lipase Procalcitonin 0.19 H HCG Beta Subunit Urine Color Yellow Urine Appearance Clear Urine pH 6.0 Ur Specific [place] 1.025 Urine Protein Trace A Urine Glucose (UA) Negative Urine Ketones 40 mg/dl A Urine Occult Blood Small A Urine Nitrate Negative Urine Bilirubin Negative Urine Urobilinogen Normal Ur Leukocyte Esterase Negative Urine RBC 7 H Urine WBC 18 H Ur Squamous Epith Cells 1 Urine Bacteria None Urine Mucus Mod A Ur Culture Indicated? yes Acetaminophen 02/18/22 20:55 WBC 18.7 H RBC 4.58 Hgb 13.6 Hct 39.9 POC Hct MCV 87.1 MCH 29.7 MCHC 34.1 RDW 12.0 Plt Count 196 MPV 11.6 H Immature Gran % (Auto) 0.5 Neut % (Auto) 84.2 H Lymph % (Auto) 7.3 L [place] % (Auto) 7.8 Eos % (Auto) 0 Baso % (Auto) 0.2 Lymph # (Auto) 1.36 L [place] # (Auto) 1.47 H Eos # (Auto) 0 Baso # (Auto) 0.04 Immature Gran # 0.09 H Absolute Neutrophils 15.77 H VBG Lactic Acid POC Sodium Sodium POC Potassium Potassium POC Chloride Chloride Carbon Dioxide POC Total CO2 Anion Gap POC BUN BUN Creatinine POC Creatinine GFR Calculation Glucose POC Glucose Uric Acid Calcium POC WB Ioniz Calcium Phosphorus Magnesium Total Bilirubin Direct Bilirubin GGT AST ALT Alkaline Phosphatase Lactate Dehydrogenase Total Protein Albumin Globulin Albumin/Globulin Ratio Triglycerides Lipase Procalcitonin HCG Beta Subunit Urine Color Urine Appearance Urine pH Ur Specific [place] Urine Protein Urine Glucose (UA) Urine Ketones Urine Occult Blood Urine Nitrate Urine Bilirubin Urine Urobilinogen Ur Leukocyte Esterase Urine RBC Urine WBC Ur Squamous Epith Cells Urine Bacteria Urine Mucus Ur Culture Indicated? Acetaminophen Discharge Plan Patient/Caregiver Discharge Instructions Activity: increase activity as tolerated Diet: Regular Diet Instructions: Urinary Tract Infection in Women (GEN), Sepsis (GEN) Activity Restrictions/Additional Instructions: Activity as tolerated, continue with a regular diet. Prescriptions: New levofloxacin 750 mg tablet 750 mg PO Q24H Qty: 5 0RF Rx Instructions: start morning of 02/21/2022. Continued buspirone 15 mg tablet 1 tab PO BID duloxetine 20 mg capsule,delayed release(DR/EC) 1 cap PO DAILY Follow Up Plan Follow up with: Francia Whitlock ARNP [Primary Care Provider] - Patient Disposition: Home, Self-Care Prognosis: Good Discharge Orders: Discharge Order (Routine); Ordered 02/20/22 Ordered By: Sanya Parry
[2022-02-19] MEDS ORDERED: cefTRIAXone 1 GM in DEXTROSE 5% IN WATER 50 ML IV SCH (09:00)
[2022-02-19] MEDS: cefTRIAXone 1 GM VIAL IV SCH (09:29)
[2022-02-19] MEDS: busPIRone 15 MG TABLET PO SCH ×2 (09:30→20:20)
[2022-02-19] MEDS: DULoxetine 20 MG CAPSULE PO SCH (10:42)
[2022-02-19] MEDS: 0.9 % SODIUM CHLORIDE 10 ML SYRINGE IV SCH ×2 (14:26→20:19)
[2022-02-20] MEDS: 0.9 % SODIUM CHLORIDE 10 ML SYRINGE IV SCH (06:08)
[2022-02-20 06:18] LABS: Basophils # (Auto) 0.04 K/mcL (0.00-0.30); Basophils % (Auto) 0.4 % (0.0-2.0); Eosinophils # (Auto) 0.09 K/mcL (0.00-0.70); Eosinophils % (Auto) 0.9 % (0.0-7.0); Hematocrit 38.5 % (34.1-44.9); Hemoglobin 12.7 g/dL (11.2-15.7); Lymphocytes # (Auto) 2.36 K/mcL (1.50-4.80); Lymphocytes % (Auto) 23.3 % (15.5-49.0); Mean Cell Volume 91.2 fL (80.0-100.0); Mean Platelet Volume 10.8 fL (7.4-10.4); Monocytes # (Auto) 0.91 K/mcL (0.10-0.90); Neutrophils % (Auto) 66.1 % (38.0-78.0); Platelet Count 212 K/mcL (140-440); RBC 4.22 M/mcL (3.59-5.38); Red Cell Distribution Width 11.9 % (11.5-14.5); WBC 10.1 K/mcL (4.5-11.0)
[2022-02-20] MEDS: ACETAMINOPHEN 325 MG TABLET PO PRN (06:18)
[2022-02-20] MEDS: cefTRIAXone 1 GM VIAL IV SCH (08:05)
[2022-02-20] MEDS: busPIRone 15 MG TABLET PO SCH (08:05)
[2022-02-20] MEDS: DULoxetine 20 MG CAPSULE PO SCH (08:05)
--- NOTE | 2022-02-20 19:32 | EKG ---
[facility] Test Date: 2022-02-18 Pat Name: Felicia Dwyer Department: ED Room: Gender: Female Client Support Administrator: KAREN : 1995 Requested By: Gene Hardin Order Number: [id number] Reading MD: Hakeem Kirkpatrick Measurements Intervals [place] Rate: 83 P: 65 GA: 145 QRS: 81 QRSD: 102 T: 9 QT: 403 QTc: 474 Interpretive Statements Sinus rhythm Electronically Signed On 02-20-2022 19:31:38 PDT by Hakeem Kirkpatrick /[id number]
== END 2022-02-20 09:50 | disposition home or self-care (01) ==
LOC: ED 20:08 → INTOOBSV 02-19 02:26 → ICU 02-19 02:26
PROVIDERS: ADMIT Internal Medicine; ATTEND Internal Medicine